=== PATIENT | male | born 1970 | race Caucasian/White ===

== ENCOUNTER 2023-06-11 19:00 | Emergency (ER) | payer SELFPAY ==
[2023-06-11 19:06] VITALS: BP 151/107; PULSE 96; RESP 18; TEMP 36.7; O2SAT 97; BMI 31.7
--- NOTE | 2023-06-11 19:12 | W.ED.EXTPRO ---
HPI - Extremity Problem General: Chief complaint: Extremity Injury, Upper Stated complaint: cut thumb Time Seen by Provider: 06/11/23 19:12 History of Present Illness: 53-year-old male patient comes in today for injury to the left distal palm. Patient was using a table saw and accidentally amputated the distal part of his left thumb. On exam patient has open wound with bleeding controlled. Patient appears in moderate to severe pain. Patient reports no chronic medical problems. Review of Systems General: Reports: 10 or more systems reviewed and unremarkable except in HPI and below Musc: Reports: extremity pain (Distal thumb amputation) Skin/Breast: Reports: new lesions Physical Exam Const: COMMON NORMALS: alert HENMT: COMMON NORMALS: normocephalic HEAD & SCALP: normocephalic Neck/C-Spine: COMMON NORMALS: full ROM Resp: COMMON NORMALS: normal respiratory effort Cardio: COMMON NORMALS: regular rate RATE: regular rate GI: COMMON NORMALS: non-tender Back/Pelvis: COMMON NORMALS: thoracic and lumbar spine normal to inspection Extremity: NARRATIVE EXTREMITY EXAM: Patient has a dorsal to volar amputation of the distal left thumb. It starts below the nail bed and angles upwards. Bleeding is controlled. Neuro: SENSORIUM/ORIENTATION: Yes alert Skin: TRAUMA: laceration (Distal thumb amputation loss of nail) Course Vital Signs: Vital signs: Vital Signs Temperature 98.1 F 06/11/23 19:06 Pulse Rate 96 06/11/23 19:06 Respiratory Rate 18 06/11/23 19:06 Blood Pressure 151/107 06/11/23 19:06 Pulse Oximetry 97 06/11/23 19:06 Oxygen Delivery Me thod Room Air 06/11/23 19:06 MDM - Extremity (Nontraumatic) Medical Decision Making 53-year-old male patient comes in today with injury to the left thumb. On exam patient has loss of the distal part of his left thumb. Total loss of the nail is noted. Soft tissue is present. No visible bone is noted. Incident occurred about 1-1/2 to 2 hours prior to arrival. Patient has some movement in the distal part of the thumb. Differential diagnosis amputation of the thumb, fracture of the thumb, need for prophylaxis tetanus. X-ray notes distal phalanx amputation of the thumb. Reviewed x-ray with Dr. Santacruz, attending ER physician, who recommended contacting hand surgeon at [facility] for follow-up. Dr. Whitlock of [facility] agreed to see patient tomorrow for further treatment and evaluation. Lab Data Radiology Impressions Hand X-Ray 06/11/23 19:14 IMPRESSION: Partial amputation of the 1st digit. All radiology interpretation(s) finalized by discharge Discharge Plan Discharge Patient Disposition: Home Clinical Impression: Amputation, thumb, traumatic Qualifiers: Encounter type: initial encounter Laterality: left Qualified Code(s): S68.012A - Complete traumatic metacarpophalangeal amputation of left thumb, initial encounter Condition: Stable Prescriptions: New hydrocodone-acetaminophen 5-325 mg tablet 1 tab PO Q6H PRN (Reason: pain (scale score 7-10)) Qty: 10 0RF cephalexin 500 mg capsule 500 mg PO Q8H 7 Days Qty: 21 0RF Discharge Orders: Discharge ED (Routine); Ordered 06/11/23 Ordered By: Ned Gorman Discharge Diet: Usual diet Discharge Activity: Increase activity as tolerated Patient Instructions: Finger Amputation (ED), Opioid Safety Activity Restrictions/Additional Instructions: Keep wound and dressing clean and dry. Follow-up with hand care surgeon, Dr. Tiana Whitlock at [facility]. They will be contacting you on your given cell phone number. You will need to have a wedding transportation driver to transport you after the procedure. Coding Level of Care Code ED Utility [employer] for Juan Manuel Isidro
--- NOTE | 2023-06-11 19:14 | XRR_ITS ---
PROCEDURE INFORMATION: Exam: XR Left Hand Exam date and time: 06/11/2023 7:30 PM Age: 53 years old Clinical indication: Injury or trauma; Other: Cut lt thumb; Amputation, traumatic; Finger; Left thumb; Additional info: Partial thumb amputaion TECHNIQUE: Imaging protocol: Radiologic exam of the left hand. Views: 3 or more views. COMPARISON: No relevant prior studies available. FINDINGS: Bones/joints: Partial amputation of the 1st distal phalanx with surrounding osseous fragments. The base is preserved. Soft tissues: Partial amputation of the 1st digit. XR/XR hand LT min 3V* [id number] IMPRESSION: Partial amputation of the 1st digit.
[2023-06-11] MEDS: lidocaine-epi 2% 20 mL INJ INJECTION (19:26)
[2023-06-11] MEDS: ceFAZolin 1,000 MG in water for injection-sterile 2.5 ML 2 MG IM (20:00)
[2023-06-11] MEDS: tetanus-dipt-pertussis 0.5 mL SDV IM (20:01)
[2023-06-11] MEDS: HYDROcodone-acetaminophen 7.5-325 mg Tablet 1 TAB PO (20:06)
[2023-06-11 20:14] VITALS: BP 151/107; PULSE 96; RESP 18; TEMP 36.7; O2SAT 97
== END 2023-06-11 20:18 | disposition home or self-care (01) ==
PROVIDERS: Emergency Provider Nurse Practitioner Family
DX: S68.012A Complete traumatic metacarpophalangeal amputation of left thumb, initial encounter (principal); W27.0XXA Contact with workbench tool, initial encounter; Z23 Encounter for immunization
CPT/HCPCS: 73130; 90471; 90715; 96372; 99284; A6446; J0690